=== PATIENT | male | born 1965 | race Caucasian/White ===

== ENCOUNTER 2017-06-13 11:11 | Emergency (ER) | payer BC ==
[2017-06-13] MEDS ORDERED: MECLIZINE 25 MG TABLET PO ONE (11:32)
--- NOTE | 2017-06-13 11:37 | Emergency Department Record ---
History of Present Illness - General Chief Complaint: Dizziness Stated Complaint: DIZZINESS Source: Patient Mode of Arrival: Ambulatory Limitations: No limitations - History of Present Illness Initial Comments: 52 yo male presents with dizziness. The onset was about 8am. He was walking in from smoking a cigarette. He describes it as a spinning feeling. No syncope. He reports about 6 years ago he was seen in [place] for a possible stroke. He reports he left the hospital prior to full evaluation. Over the last few week he has had right upper arm weakness and numbness at times. He states his arm with go "numb" and he will not be able light it up at those times. He has to use his left arm to lift his right arm to lift his right arm. He has had RLE symptoms at times as well but to a lesser extent. His significant other states she has witness transient loss of bar tacker strength at times. MD Complaint: Dizziness -: Hour(s) (3.5) Timing: Sudden onset Description: Difficulty walking, Lightheadedness, "Room spinning", Sense of movement Improves With: Remaining still Worsens With: Movement Associated Symptoms: Other (Numbness) - Zenaida Coma Scale Eye Response: (4) Open spontaneously Motor Response: (6) Obeys commands Verbal Response: (5) Oriented [place] Total: 15 - Symptoms of Stroke Symptoms of stroke: Dizziness, Numbness - Related Data Home Medications Medication Instructions Recorded Confirmed Last Taken No Home Med [NO HOME MEDS] 06/13/17 06/13/17 Unknown Allergies Allergy/AdvReac Type Severity Reaction Status Date / Time No Known Drug Allergies Allergy Verified 06/13/17 11:32 Review of Systems Constitutional: Denies: Chills, Fever, Malaise Eyes: Denies: Eye discharge, Eye pain, Photophobia, Vision change ENT: Denies: Congestion, Throat pain Respiratory: Denies: Cough, Dyspnea, Hemoptysis, Stridor, Wheezes Cardiovascular: Denies: Chest pain, Palpitations, Syncope Endocrine: Denies: Fatigue Gastrointestinal: Reports: Nausea. Denies: Abdominal pain, Diarrhea, Vomiting Genitourinary: Denies: Dysuria, Frequency, Hematuria Musculoskeletal: Denies: Arthralgia, Back pain, Joint swelling, Myalgia, Neck pain Skin: Denies: Bruising, Change in color, Rash Neurological: Reports: Numbness, Vertigo, Weakness. Denies: Confusion, Headache Psychiatric: Denies: Anxiety Hematological/Lymphatic: Denies: Blood Clots, Easy bleeding, Easy bruising, Swollen glands Physical Exam - General General Appearance: Alert, Oriented x3, Cooperative, No acute distress Limitations: No limitations - Head Head exam: Atraumatic, Normocephalic, Normal inspection - Eye Eye exam: Normal appearance, PERRL, EOMI. negative: Conjunctival injection, Nystagmus, Scleral icterus - ENT ENT exam: Normal exam, Mucous membranes moist Ear exam: Normal external inspection Nasal Exam: Normal inspection Mouth exam: Normal external inspection Teeth exam: Normal inspection Throat exam: Normal inspection - Neck Neck exam: Normal inspection - Respiratory Respiratory exam: Normal lung sounds bilaterally. negative: Respiratory distress - Cardiovascular Cardiovascular Exam: Regular rate, Normal rhythm, Normal heart sounds Peripheral Pulses: 2+: Radial (R), Radial (L) - GI/Abdominal GI/Abdominal exam: Soft. negative: Tenderness - Rectal Rectal exam: Deferred - exam: Deferred - Extremities Extremities exam: Normal inspection - Back Back exam: Reports: Normal inspection. Denies: CVA tenderness (R), CVA tenderness (L) - Neurological Neurological exam: Alert, CN II-XII intact, Oriented X3, Reflexes normal, Other (Finger to nose intact, gait mild wild base, Rhomberg response wobley but stands wtihout assist). negative: Altered, Motor sensory deficit - Psychiatric Psychiatric exam: Normal affect, Normal mood - Skin Skin exam: Dry, Intact, Normal color, Warm Stroke Assessment - NIH Stroke Scale 1a. Level of Consciousness: (0) Alert 1b. LOC Questions: (0) Answers Correctly 1c. LOC Commands: (0) Performs Tasks Correctly 2. Best Gaze: (0) Normal 3. Visual: (0) No Visual Loss 4. Facial Palsy: (0) Normal Symmetrical Movement 5a. Motor Arm Left: (0) No Drift 5b. Motor Arm Right: (0) No Drift 6a. Motor Leg Left: (0) No Drift 6b. Motor Leg Right: (0) No Drift 7. Limb Ataxia: (0) Absent 8. Sensory: (0) Normal 9. Best Language: (0) No Aphasia 10. Dysarthria: (0) Normal 11. Extinction/Inattention: (0) No Abnormality NIH Stoke Scale Total: 0 Course - Reevaluation(s) Reevaluation #1: 06/13/17 12:22 The Labs were reviewed No acute changes 06/13/17 12:26 The radiologist was called for stat read. The HCT is negative for any acute process. 06/13/17 12:33 [facility] contacted at [facility] to discuss the symptoms with Stroke. Dr Cummings is the current stroke attending 06/13/17 12:59 06/13/17 13:00 Dr Cummings accept the Patient for ER to ER transfer for evaluation Dr Seaman of the ED accepts the patient to the ED Medical Decision Making - Lab Data Result diagrams: 06/13/17 11:50 06/13/17 11:50 Disposition Disposition: Transfer Clinical Impression: Dizziness, Ataxia, Right arm weakness Disposition: Acute Care Hospital Transfer Transfer To: [facility] Reason For Transfer: Stroke Consultation Accepting Physician: Isis Cummings Time Discussed w/Accepting Physician: 12:40 Condition: (2) Stable Forms: Patient Portal Access Time of Disposition: 12:35 Quality - Quality Measures Quality Measures: N/A - Blood Pressure Screening Does Patient Have Any of the Following: No Blood Pressure Classification: Normal BP Reading Systolic Measurement: 113 Diastolic Measurement: 78 Screening for High Blood Pressure: < Normal BP, F/U Not Required > [G8783]
[2017-06-13 12:01] LABS: BASO % 0.2 % (0-6); EOS % 0.6 % (0-6); GRAN % 74.4 % (47-80); HEMATOCRIT 44.1 % (42.0-52.0); HEMOGLOBIN 14.9 gm/dl (14.0-18.0); LYMPH % 17.3 % (16-45); MEAN CELL VOLUME 89.5 fl (81-97); MEAN CORPUSCULAR HEMOGLOBIN 30.2 pg (27-33); MEAN CORPUSCULAR HGB CONC 33.8 g/dl (32-36); MEAN PLATELET VOLUME 11.1 fl (7.4-10.4); MONO % 7.5 % (0-9); PLATELET COUNT 213 K/uL (130-400); RED BLOOD COUNT 4.93 M/uL (4.40-5.70); RED CELL DISTRIBUTION WIDTH 14.5 % (11.5-14.5); WHITE BLOOD COUNT W/O DIFF 12.8 K/uL (4.2-12.2)
[2017-06-13 12:13] LABS: BLOOD UREA NITROGEN 14 mg/dL (6-20)
[2017-06-13 12:14] LABS: CREATININE 1.1 mg/dL (0.7-1.2); EST GLOMERULAR FILTRATION RATE > 60 mL/min
[2017-06-13 12:16] LABS: GLUCOSE,RANDOM 96 mg/dL (74-109)
[2017-06-13 12:17] LABS: INR 0.96; PARTIAL THROMBOPLASTIN TIME 28.9 SECONDS (24.5-39.1); PROTHROMBIN TIME (PATIENT) 10.4 SECONDS (9.5-12.1)
[2017-06-13] MEDS ORDERED: ASPIRIN 81 MG CHEWABLE TABLET PO ONE (12:41)
[2017-06-13] MEDS ORDERED: NICOTINE 21 MG/24 HOUR PATCH TD STA (12:59)
--- NOTE | 2017-06-13 22:51 | CT SCAN REPORT ---
EXAM: CT SCAN HEAD WO CONTRAST HISTORY: CEREBROVASCULAR ACCIDENT. TECHNIQUE: Sequential axial images were obtained from the foramen magnum through the vertex without contrast administration. FINDINGS: Brain volume is normal. No large territorial infarct, hemorrhage, mass effect, or midline shift. No extraaxial fluid collection. Orbits, paranasal sinuses, and mastoid air cells are normal. IMPRESSION: NO ACUTE INTRACRANIAL ABNORMALITY IS APPRECIATED. JOB NUMBER: [id number] MTDD
== END 2017-06-13 13:04 | disposition short-term general hospital (02) ==
LOC: ER 11:11
DX: R42 Dizziness and giddiness (principal); R27.0 Ataxia, unspecified; R20.0 Anesthesia of skin; M62.81 Muscle weakness (generalized)
CPT/HCPCS: 70450; 80048; 83735; 84484; 85025; 85610; 85730; 93005; 93010; 99285